=== PATIENT | male | born 1960 | race Caucasian/White ===

== ENCOUNTER 2020-11-20 21:58 | Emergency (ER) | payer BC ==
[2020-11-20 22:09] VITALS: BP 162/86; PULSE 108; TEMP 100.2; BMI 25.6
[2020-11-20] MEDS ORDERED: CIPROFLOXACIN 500 MG TABLET (RESTRICTED TO ID) PO ONE (23:13)
[2020-11-20] MEDS ORDERED: PHENAZOPYRIDINE HCL 100 MG TABLET (FP) PO ONE (23:13)
[2020-11-20] MEDS ORDERED: CIPROFLOXACIN 250 MG TABLET (RESTRICTED TO ID) PO ONE (23:27)
[2020-11-20] MEDS ORDERED: PHENAZOPYRIDINE HCL 100 MG TABLET (FP) ONE (23:27)
== END 2020-11-20 23:34 | disposition home or self-care (01) ==
LOC: FER 21:58
DX: N39.0 Urinary tract infection, site not specified (principal)
CPT/HCPCS: 81003; 81015; 87086; 99283-25